=== PATIENT | female | born 1995 | race African-American/Black ===

== ENCOUNTER 2022-06-13 12:25 | Emergency (ER) | payer OTHER ==
[~2022-06-13] VITALS: Ht 180.3 cm; Wt 68.0 kg
[2022-06-13 12:33] VITALS: BP 134/82
[2022-06-13] MEDS ORDERED: DIPHENHYDRAMINE 50MG/ML VIAL IM STA (12:46)
[2022-06-13] MEDS ORDERED: HALOPERIDOL LACTATE 5MG/ML VIAL IM STA (12:46)
[2022-06-13] MEDS ORDERED: MIDAZOLAM HCL 2 MG/2 ML VIAL IV ONE (13:00)
[2022-06-13] MEDS ORDERED: SODIUM CHLORIDE 0.9% 1,000 ML IV ONE (13:00)
== END 2022-06-13 14:01 | disposition left against medical advice (07) ==
LOC: ER 12:25
DX: F06.31 Mood disorder due to known physiological condition with depressive features (principal); R45.1 Restlessness and agitation; F20.9 Schizophrenia, unspecified; R03.0 Elevated blood-pressure reading, without diagnosis of hypertension; Z78.1 Physical restraint status
CPT/HCPCS: 99283; J7030

== ENCOUNTER 2022-08-31 17:59 | Emergency (ER) | payer OTHER ==
[~2022-08-31] VITALS: Ht 172.7 cm; Wt 65.0 kg
[2022-08-31] MEDS ORDERED: HALOPERIDOL 5MG TABLET PO ONE (20:45)
[2022-08-31] MEDS ORDERED: LORAZEPAM 2MG/ML CPJ IM ONE (20:45)
[2022-08-31] MEDS ORDERED: DIPHENHYDRAMINE 50MG/ML VIAL IM ONE (20:45)
[2022-08-31] MEDS ORDERED: HALOPERIDOL LACTATE 5MG/ML VIAL IM ONE (21:00)
[2022-08-31 21:44] LABS: BASOPHILS % 0.2 % (0.0-2.0); EOSINOPHILS % 0.2 % (0.0-5.0); HEMATOCRIT. 39.1 % (36.0-48.0); HEMOGLOBIN. 13.2 g/dL (12.0-16.0); LYMPHOCYTES % 31.7 % (20.0-50.0); MEAN CORPUSCULAR HEMOGLOBIN 28.5 pg (28.0-32.0); MEAN CORPUSCULAR VOLUME 84.7 fL (81.0-99.0); MEAN PLATELET VOLUME 9.2 fl (7.4-10.4); MONOCYTES % 7.8 % (2.0-8.0); NEUTROPHILS % 60.1 % (40.0-76.0); PLATELET 204 x1000/uL (130-400); RED BLOOD CELL COUNT 4.62 mill/uL (4.2-5.4); RED CELL DISTRIBUTION WIDTH 14.7 % (11.6-14.6)
[2022-08-31 21:46] LABS: CLARITY URINE TURBID (CLEAR); COLOR URINE YELLOW (YELLOW); KETONES URINE 2+ (NEGATIVE); LEUKOCYTE ESTERASE URINE 1+ (NEGATIVE); NITRITE URINE NEGATIVE (NEGATIVE); OCCULT BLOOD URINE NEGATIVE (NEGATIVE); PROTEIN URINE 1+ (NEGATIVE); SPECIFIC GRAVITY URINE 1.023 (1.005-1.030)
[2022-08-31 21:53] LABS: CHLORIDE 102 mEq/L (98-107)
[2022-08-31 22:01] LABS: ETHANOL BLOOD < 10 mg/dL
[2022-08-31 22:04] LABS: *BARBITURATES SCREEN URINE NEGATIVE (NEGATIVE); *BENZODIAZEPINES SCREEN URINE NEGATIVE (NEGATIVE); METHADONE URINE SCREEN NEGATIVE (NEGATIVE); OPIATES URINE SCREEN NEGATIVE (NEGATIVE); PHENCYCLIDINE URINE SCREEN NEGATIVE (NEGATIVE)
[2022-08-31 22:16] LABS: *AMPHETAMINES SCREEN URINE PRESUMTIVE POSITIVE (NEGATIVE); *COCAINE SCREEN URINE PRESUMTIVE POSITIVE (NEGATIVE); CANNABINOID URINE SCREEN PRESUMTIVE POSITIVE (NEGATIVE)
[2022-09-01] MEDS ORDERED: NITROFURANTOIN 100MG M/M CAPSULE PO ONE (12:15)
[2022-09-01 17:45] VITALS: BP 115/65
[2022-09-01] MEDS ORDERED: HALOPERIDOL 5MG TABLET PO ONE (21:00)
== END 2022-09-01 18:00 ==
LOC: ER 18:15
DX: F20.9 Schizophrenia, unspecified (principal); F91.8 Other conduct disorders; F15.10 Other stimulant abuse, uncomplicated; F12.10 Cannabis abuse, uncomplicated; F14.10 Cocaine abuse, uncomplicated; F43.10 Post-traumatic stress disorder, unspecified; Z20.822 Contact with and (suspected) exposure to COVID-19; Z75.1 Person awaiting admission to adequate facility elsewhere
CPT/HCPCS: 36415; 80053; 80305; 80307; 80320; 80329; 81003; 81025; 85025; 96372; 99285; C9803; J1200; J1630; J2060; U0003; U0005; Z7610; G0480

== ENCOUNTER 2023-02-11 16:46 | Emergency (ER) | payer MEDICAID, OTHER ==
[~2023-02-11] VITALS: Ht 172.7 cm; Wt 58.0 kg
[2023-02-11] MEDS ORDERED: LORA-250 PO (20:51)
[2023-02-11 21:00] VITALS: BP 116/70
== END 2023-02-11 21:24 | disposition home or self-care (01) ==
LOC: ER 16:46
DX: F43.10 Post-traumatic stress disorder, unspecified (principal); F41.9 Anxiety disorder, unspecified; F20.9 Schizophrenia, unspecified
CPT/HCPCS: 93005; 99283

== ENCOUNTER 2023-02-16 17:20 | Emergency (ER) | payer OTHER ==
[~2023-02-16] VITALS: Ht 188 cm; Wt 78.6 kg
[~2023-02-16 17:20] MED LIST: LORA-250 PO
[2023-02-16 17:32] VITALS: BP 109/72
[2023-02-16] MEDS ORDERED: OFLO5DRO3 LEFTEYE ×2 (19:04)
[2023-02-16] MEDS ORDERED: LORA-250 PO (19:04)
== END 2023-02-16 19:33 | disposition home or self-care (01) ==
LOC: ER 17:20
DX: F41.0 Panic disorder [episodic paroxysmal anxiety] (principal); F20.9 Schizophrenia, unspecified
CPT/HCPCS: 99281; 99283